=== PATIENT | male | born 1990 | race Caucasian/White ===

== ENCOUNTER 2024-12-21 11:46 | Emergency (ER) | payer MEDICAID, OTHER ==
[~2024-12-21] VITALS: Ht 175.3 cm; Wt 72.7 kg
[2024-12-21 11:51] VITALS: BP 131/89; PULSE 84; RESP 18; TEMP 98.2; O2SAT 99
[2024-12-21] MEDS: MORPHINE SULFATE 4 MG/ML SYRINGE IVP ONE (12:14)
[2024-12-21] MEDS: LIDOCAINE 1% 10 ML VIAL SQ ONE (12:17)
[2024-12-21] MEDS: BACITRACIN 28 GM OINTMENT TP ONE (12:17)
[2024-12-21] MEDS: ONDANSETRON HCL 4 MG/2 ML VIAL IVP ONE (12:18)
[2024-12-21] MEDS: SODIUM CHLORIDE 0.9% 1,000 ML IV ONE (12:18)
[2024-12-21 12:20] LABS: BASOPHILS % (AUTO) 0.3 % (0.0-2.0); EOSINOPHILS % (AUTO) 0.6 % (1.0-6.0); HEMATOCRIT 47.7 % (41-53); HEMOGLOBIN 16.2 g/dL (13.5-17.5); LYMPHOCYTES # (AUTO) 2.4 K/uL (1.0-4.8); LYMPHOCYTES % (AUTO) 26.7 % (22.0-44.0); MEAN CORPUSCULAR HEMOGLOBIN 31.6 pg (26.0-34.0); MEAN CORPUSCULAR VOLUME 93 fL (80-100); MONOCYTES # (AUTO) 0.5 K/uL (0.1-1.0); MONOCYTES % (AUTO) 5.8 % (2.0-9.0); NEUTROPHILS % (AUTO) 66.6 % (40.0-70.0); PLATELET COUNT (AUTO) 329 K/uL (150-450); RED BLOOD CELL COUNT(AUTO) 5.14 MIL/uL (4.50-5.90); WHITE BLOOD COUNT (AUTO) 9.1 K/uL (4.5-11.0)
[2024-12-21] MEDS: PERTUSS(ACELL),DIPH,TET/PF 0.5 ML SYRINGE [ADULT] IM. ONE (12:20)
[2024-12-21] MEDS ORDERED: IOHEXOL 350 MG/ML 100 ML VIAL ONE (12:27)
[2024-12-21 12:28] LABS: ANION GAP 9 mmol/L (8-16); CALCIUM, TOTAL 8.5 mg/dL (8.8-10.5); CARBON DIOXIDE 29 mmol/L (22-29); CHLORIDE 105 mmol/L (98-107); CREATININE 0.99 mg/dL (0.60-1.30); GLOMERULAR FILTR. RATE CALC > 60 mL/min (>60); GLUCOSE,RANDOM 86 mg/dL (70-110); POTASSIUM 3.7 mmol/L (3.5-5.1); SODIUM SERUM 143 mmol/L (136-145); UREA NITROGEN, BLOOD 11 mg/dL (7-18)
[2024-12-21] MEDS ORDERED: SODIUM CHLORIDE 0.9% 100 ML ONE (12:29)
[2024-12-21] MEDS ORDERED: BACI28.410 TP (14:43)
[2024-12-21] MEDS ORDERED: IBUP-1554 PO (14:43)
[2024-12-21] MEDS ORDERED: ACET-66 PO (14:43)
== END 2024-12-21 15:26 | disposition left against medical advice (07) ==
LOC: EMS 11:48
DX: S06.0XAA Concussion with loss of consciousness status unknown, initial encounter (principal); S01.01XA Laceration without foreign body of scalp, initial encounter; Z98.890 Other specified postprocedural states; X58.XXXA Exposure to other specified factors, initial encounter; Y93.55 Activity, bike riding; Y92.488 Other paved roadways as the place of occurrence of the external cause; Y99.8 Other external cause status
CPT/HCPCS: 70450; 99285; 96374; 71045; 96361; 96375; 80048; 85025; 36415; 71260; 72125; 72128; 72131; 72193; 74160; 90715; 90471; 12004; G0480; Q9967; J2270; J2405; J3490; J7030; J7050

== ENCOUNTER 2024-12-29 09:54 | Emergency (ER) | payer MEDICAID, OTHER ==
[~2024-12-29] VITALS: Ht 175.3 cm; Wt 150.0 kg
[~2024-12-29 09:54] MED LIST: ACET-66 PO; BACI28.410 TP; IBUP-1554 PO
[2024-12-29 10:11] VITALS: BP 112/82; PULSE 88; RESP 18; TEMP 98.2; O2SAT 99
[2024-12-29] MEDS ORDERED: SERT-439 PO (10:14)
[2024-12-29] MEDS ORDERED: NALT50TA6 PO (10:14)
== END 2024-12-29 11:48 | disposition home or self-care (01) ==
LOC: EMS 09:56
DX: S01.01XD Laceration without foreign body of scalp, subsequent encounter (principal); F32.A Depression, unspecified; Z91.018 Allergy to other foods; X58.XXXD Exposure to other specified factors, subsequent encounter
CPT/HCPCS: 99281; Z7502